=== PATIENT | male | born 1975 | race Caucasian/White ===

== ENCOUNTER 2025-01-26 17:34 | Inpatient (IN) | payer OTHER, SELFPAY ==
[2025-01-26] VITALS (7 sets, daily range): BP systolic 106–128; BP diastolic 75–94; PULSE 70–82; RESP 16–19; TEMP 36.6–37.4; O2SAT 97–100; BMI 29.7; BMI 27.2
--- NOTE | 2025-01-26 18:13 | EDS_ITS ---
HPI History of Present Illness Chief Complaint: Cellulitis Detail of Chief Complaint: Right index finger infection Informant: patient Narrative Narrative: Patient presents the emergency department with concern for infection in his right index finger. Patient states that he sustained a laceration 2 and half weeks ago to the tip of his right index finger on the lid of a grease gun. He did not think much of it. Yesterday he states that he was able to drain some purulent debris from the tip of the finger. Today started having increased redness to the finger and up the hand and up to the upper arm. He denies fevers chills or sweats. PFSH PFSH Allergy/AdvReac Type Severity Reaction Status Date / Time No Known Allergies Allergy Verified 01/26/25 17:36 Social History Smoking Status: Never smoker ROS ROS ED Review of Systems ROS Unobtainable: other Constitutional Constitutional ED: Reports lethargy; Denies chills, fever(s), sweats or weight loss Eyes Eyes: Denies blurry vision, change in vision or diplopia ENT ENT ED: Denies rhinorrhea or sore throat Cardiovascular Cardiovascular: Denies chest pain, orthopnea or racing heartbeat Respiratory/Chest Respiratory/Chest: Denies cough, dyspnea, dyspnea on exertion, orthopnea or sputum Gastrointestinal Gastrointestinal: Denies abdominal pain, diarrhea, nausea or vomiting Genitourinary Genitourinary ED: Denies dysuria, hematuria or urinary frequency Musculoskeletal Musculoskeletal: Denies arthralgias, back pain, myalgias or neck pain Integumentary Reports other Details: Cellulitis/infection right index finger ; Denies abscess, Abrasions or rash Neurologic Neurologic: Denies headache(s) or weakness Psychiatric Psychiatric: Denies anxiety, depression or suicidal thoughts Endocrine Endocrinology: Denies polydipsia, polyphagia or polyuria Hematologic/Lymphatic Hematologic/Lymphatic: Denies easy bleeding, easy bruising or lymphadenopathy Allergic/Immunologic Allergic/Immunologic ED: Denies mouth swelling, tongue swelling or urticaria EXAM Physical Exam Const Vital Signs: 01/26/25 17:36 01/26/25 17:41 01/26/25 18:40 Temperature 98.2 F 98.2 F 98 F Temperature Source Oral Oral Oral Pulse Rate 82 82 73 Respiratory Rate 18 18 19 H Blood Pressure 120/94 H 120/94 H 124/92 H Blood Pressure Mean 102 102 102 Pulse Ox 100 100 97 Oxygen Delivery Method Room Air Room Air Room Air 01/26/25 19:00 Temperature 98.2 F Temperature Source Oral Pulse Rate 70 Respiratory Rate 16 Blood Pressure 111/78 Blood Pressure Mean 89 Pulse Ox 97 Oxygen Delivery Method Room Air Positive well nourished and well developed General Appearance ED: well developed and NAD HEENT Reports TM's clear and moist mucous membranes normocephalic and atraumatic; Negative for trauma or tenderness Tympanic Membrane ED: Yes TM's clear Eyes PERRL and EOMs intact bilaterally General Eye ED: Negative for pale conjunctiva or scleral icterus Neck no lymphadenopathy, supple and no JVD General: Negative for tenderness Chest Wall inspection of chest normal and palpation of chest normal Chest: Negative for tenderness Resp normal respiratory effort and clear to auscultation bilaterally Effort and Inspection: Negative for respiratory distress or pain with movement Auscultation: Negative for rhonchi, wheezes or diminished lung sounds Cardio regular rate, regular rhythm, S1 normal heart sound, S2 normal heart sound and no murmurs Peripheral Pulses: pulses 2+ throughout GI normal to inspection, nondistended, normoactive bowel sounds, soft to palpation, non-tender, non-distended and no masses Back/Spine no CVA tenderness and no thoracic nor lumbar tenderness Extremity Extremity Narrative: Right hand-evaluation of the right index finger does reveal a small wound to the lateral aspect of the distal phalanx just proximal to the volar nail. No purulent drainage. He does have diffuse erythema over the dorsum of the finger with lymphangitic streaking to the posterior aspect of the hand and radiate up the forearm to the upper arm and armpit. General Extremety ED: Negative for edema General Extremity: Negative for edema Neuro oriented x3, CN's II-XII intact bilaterally, no sensory deficits noted and gait normal Sensorium / Orientation: awake, alert, oriented to person, oriented to place and oriented to time Motor Exam: strength 5/5 throughout and strength abnormal Psych mental status grossly normal Skin no rashes or lesions noted and no wounds MDM MDM MDM Narrative Medical decision making narrative: Patient with redness and swelling of his right index finger and hand with lymphangitic streaking to the armpit. Clinically looks well. IV line established. Patient was started on Ancef and Vanco. CBC with differential count 5.1 with hemoglobin 15.2 and platelet count of 214. Chemistries unremarkable. Lactate less than 1. Lab Data Attestation: I reviewed the patient's lab results. Labs: Laboratory Results - last 24 hr 01/26/25 18:27 WBC 5.1 RBC 5.09 Hgb 15.2 Hct 43.5 MCV 85.5 MCH 29.9 MCHC 34.9 RDW Std Deviation 39.5 RDW Coeff of Immanuel 12.7 Plt Count 214 MPV 9.1 Immature Gran % (Auto) 0.200 Neut % (Auto) 64.2 Lymph % (Auto) 20.5 [place] % (Auto) 13.5 H Eos % (Auto) 1.0 Baso % (Auto) 0.6 Absolute Neuts (auto) 3.3 Absolute Lymphs (auto) 1.05 Nucleated RBC % 0 Sodium 137 Potassium 4.1 Chloride 105 Carbon Dioxide 18.0 L Anion Gap 15 BUN 19 Creatinine 1.02 Estim Creat Clear Calc 94.81 Est GFR (MDRD) Non-Af 90 BUN/Creatinine Ratio 19.0 Glucose 93 Lactic Acid < 1.0 Calcium 8.9 Radiography Diagnostic Testing: Clinical Impression(s) from Imaging Studies Finger X-Ray 01/26/25 18:32 IMPRESSION: No periosteal reaction or osseous destructive change identified. A couple of soft tissue punctate densities near the skin surface at the lateral side of the 2nd metatarsal phalangeal joint on the AP and oblique views. Reading Location: [facility] Three-view x-rays of the right index finger obtained interpreted by myself as no evidence of fracture or dislocation or foreign body at the tip of the digit where the wound is. Radiology did note a couple soft tissue punctate density near the skin surface at the lateral side of the second metacarpal. I suspect these findings are old and not related to the current injury. Discharge Plan Triage Chief Complaint: Cellulitis ED Provider: Danna Nuno Dx/Rx/DC Orders Clinical Impression: Cellulitis of finger of right hand, Lymphangitis Primary Care Provider: Christopher Sweeney Referrals: Christopher Sweeney MD [Primary Care Provider] - Print Language: Kyrgyz Disposition Disposition: [facility]
[2025-01-26] MEDS: Vancomycin HCl 1,250 MG in 0.9% Normal Saline (250mL Bag) 250 ML 167 MG IV (18:31)
--- NOTE | 2025-01-26 18:32 | RAD_ITS ---
PROCEDURE: FINGER(S) MIN 2 VIEWS 01/26/2025 REASON FOR EXAM: INFECTION, RULE OUT FB TECHNIQUE: 3 view(s) of the right 2nd ray, index finger COMPARISON: None available FINDINGS: No fracture or dislocation. The joint spaces appear within limits. No periosteal reaction or osseous destructive change identified. A couple of punctate densities near the skin surface at the lateral side of the 2nd metatarsal phalangeal joint on the AP and oblique views. RAD/Finger(s) Min 2 Views IMPRESSION: No periosteal reaction or osseous destructive change identified. A couple of soft tissue punctate densities near the skin surface at the lateral side of the 2nd metatarsal phalangeal joint on the AP and oblique views. Reading Location: [id number]
[2025-01-26] MEDS: Cefazolin 3 GM in Syringe 1 EACH IV (18:37)
[2025-01-26 18:49] LABS: Absolute Lymphocyte Count 1.05 X10^3/uL (0.83-4.51); Absolute Neutrophil Count 3.3 X10^3/uL (2.0-7.7); Basophil# 0.03 X10^3/uL; Basophil% 0.6 % (0-1); Eosinophil# 0.05 X10^3/uL; Hematocrit 43.5 % (40-54); Hemoglobin 15.2 g/dL (13.0-16.5); Lymphocyte # 1.05 X10^3/ul (0.83-4.51); Lymphocyte % 20.5 % (19-41); Mean Corp Hgb Conc 34.9 g/dL (32-36); Mean Corpuscular Hgb 29.9 pg (27.0-32.0); Mean Corpuscular Volume 85.5 fL (80-94); Mean Platelet Vol. 9.1 fl (6.2-12.0); Monocyte# 0.69 X10^3/uL; Monocyte% 13.5 % (0-10); NRBC Flagged by Analyzer 0 % (0-5); Neutrophil # 3.29 X10^3/uL (2.7-7.7); Neutrophil % 64.2 % (47-70); Platelet Count 214 K/mm3 (150-450); RBC Distribution Width CV 12.7 % (11.6-14.6); RBC Distribution Width SD 39.5 fl (35.1-43.9); Red Blood Count 5.09 M/mm3 (4.6-6.2); White Blood Count 5.1 K/mm3 (4.4-11.0)
[2025-01-26 19:03] LABS: Anion Gap 15 (5-15); BUN 19 mg/dL (4-19); Calcium,Total 8.9 mg/dL (7.6-11.0); Chloride 105 mmol/L (98-108); Creatinine, Serum 1.02 mg/dL (0.70-1.20); EST Glomerular Filtration Rate 90 (>60); Estimated Creatinine Clearance 94.81 ml/min (50-250); Glucose 93 mg/dL (70-99); Potassium 4.1 mmol/L (3.3-5.1); Sodium Level 137 mmol/L (133-145)
[2025-01-26 19:04] LABS: Lactic Acid < 1.0 mmol/L (0.0-2.0)
--- NOTE | 2025-01-26 19:23 | PCM.HP.STD ---
[facility] - General General Date of Admission: 01/26/25 Date of Service: 01/26/25 Chief Complaint: Infected Finger. HPI Narrative ELLIE CH, is a 49 M with a past medical history of being overweight; with BMI of 29.7 this admission who presents to [facility] ER complaining of increasing redness and swelling of the dorsal aspect of his Right index finger. Mr. Ch reports his symptoms began approximately 2-1/2 weeks ago after he cut his finger on the lid of a grease gun with no immediate problems noted regarding infection. He then had a very stressful week after the untimely of his son with a large and patient having poor sleep and nutrition over the recent timeframe. Then yesterday he was able to drain some purulent material from the tip of the finger and today he noted lymphangitic streaking of his entire Right forearm so he decided to come in for further evaluation and treatment. He denies associated fever, chills, sweats, nausea, vomiting, diarrhea, constipation, abdominal pain, chest pain, shortness of breath, headache or pain with flexion and extension of the fingers of his Right hand. In the ER he had a x-rays that revealed no periosteal reaction or osseous destructive changes identified but with a couple of soft tissue punctate densities near the skin surface at the lateral side of the second metatarsal phalangeal joint on AP and oblique views and he was then diagnosed with Cellulitis of the Right index finger complicated by lymphangitic streaking up his entire Right arm to the axilla with patient empirically started on IV vancomycin and IV cefazolin. He was then admitted to the general medical floor for ongoing care for a stay that is expected to extend beyond 2 midnights. [facility] Home Medications ?Medication ?Instructions ?Recorded ?Last Taken ?Type mv-min-iron 18 mg-folic 240 mcg-K1 3 tab PO BID SUPPLEMENT 01/26/25 01/26/25 History 40 rdo-ocyizs-saeitm-herbs tablet ([employer]) Allergy/AdvReac Type Severity Reaction Status Date / Time No Known Allergies Allergy Verified 01/26/25 17:36 Social History Smoking Status: Never smoker ROS ROS Narrative Review of Systems: Constitutional: Patient denies fever or chills. Eyes: Patient denies change in vision or discharge from eyes. ENT: Patient denies runny nose, sore throat or ear pain. Resp: Patient denies shortness of breath or cough. CV: Patient denies chest pain, palpitations, heart racing or lower extremity edema. GI: Patient denies abdominal pain, nausea, vomiting, diarrhea or constipation. : Patient denies dysuria or hematuria. MSK: Patient denies arthralgias or myalgias. Skin: Patient admits to erythema and edema over the dorsal aspect of the right index finger extending into his hand with lymphangitic streaking up to the axilla as per HPI. Psych: Patient admits to sharply increased life stress after the recent of his son but he denies SI or HI. Neuro: Patient denies headache, paresthesias or focal neurologic deficits. Allergy: Patient denies lip swelling, tongue swelling or urticaria. Hematology: Patient denies easy bleeding or easy bruisability. Endocrinology: Patient denies polyuria, polydipsia, polyphagia or heat/cold intolerance. 14 point ROS otherwise negative save for positives noted above in HPI. Vital Signs Vital Signs Vital Signs: 01/26/25 17:36 01/26/25 17:41 01/26/25 18:40 Temperature 98.2 F 98.2 F 98 F Temperature Source Oral Oral Oral Pulse Rate 82 82 73 Respiratory Rate 18 18 19 H Blood Pressure 120/94 H 120/94 H 124/92 H Blood Pressure Mean 102 102 102 Pulse Ox 100 100 97 Oxygen Delivery Method Room Air Room Air Room Air 01/26/25 19:00 Temperature 98.2 F Temperature Source Oral Pulse Rate 70 Respiratory Rate 16 Blood Pressure 111/78 Blood Pressure Mean 89 Pulse Ox 97 Oxygen Delivery Method Room Air Weight Weight: 195 lb 8 oz Body Mass Index (BMI) 29.7 Physical Exam Const alert, oriented x3, no apparent distress, average body habitus and healthy appearing General Appearance: cooperative HEENT normocephalic, head/scalp atraumatic, hearing grossly normal bilaterally and moist oral mucous membranes Eyes PERRL and EOMs intact bilaterally Neck no lymphadenopathy and supple Resp normal respiratory effort, no retractions, no use of accessory muscles and clear to auscultation bilaterally Cardio regular rate and regular rhythm GI normal to inspection, nondistended, normoactive bowel sounds, soft to palpation, non-tender and non-distended Extremity Extremity Narrative: Cellulitis of Right index finger with Lymphangitic Streaking up the Right arm. Skin Skin Narrative: Cellulitis of Right index finger with Lymphangitic Streaking up the Right arm. Neuro oriented x3, CN's II-XII intact bilaterally, moves all extremities and no focal motor deficits Sensorium / Orientation: awake, alert, oriented to person, oriented to place and oriented to time Speech: speech normal Psych affect normal Results Medical Records Data Attestation: I reviewed the patient's medical records Lab / Micro Data Attestation: I reviewed the patient's lab results. 01/26/25 18:27 01/26/25 18:27 Labs: Laboratory Results - last 24 hr 01/26/25 18:27: WBC 5.1, RBC 5.09, Hgb 15.2, Hct 43.5, MCV 85.5, MCH 29.9, MCHC 34.9, RDW Std Deviation 39.5, RDW Coeff of Immanuel 12.7, Plt Count 214, MPV 9.1, Immature Gran % (Auto) 0.200, Neut % (Auto) 64.2, Lymph % (Auto) 20.5, [place] % (Auto) 13.5 H, Eos % (Auto) 1.0, Baso % (Auto) 0.6, Absolute Neuts (auto) 3.3, Absolute Lymphs (auto) 1.05, Nucleated RBC % 0, Sodium 137, Potassium 4.1, Chloride 105, Carbon Dioxide 18.0 L, Anion Gap 15, BUN 19, Creatinine 1.02, Estim Creat Clear Calc 94.81, Est GFR (MDRD) Non-Af 90, BUN/Creatinine Ratio 19.0, Glucose 93, Lactic Acid < 1.0, Calcium 8.9 Imaging Radiology Impression Finger X-Ray 01/26/25 18:32 IMPRESSION: No periosteal reaction or osseous destructive change identified. A couple of soft tissue punctate densities near the skin surface at the lateral side of the 2nd metatarsal phalangeal joint on the AP and oblique views. Reading Location: [facility] Assessment & Plan Assessment/Plan (1) Cellulitis of finger of right hand: (2) Lymphangitis: (3) Overweight (BMI 25.0-29.9): PLAN: Plan 1. Cellulitis of the Right Index Finger with Lymphangitic Streaking up Right Arm - Admit to general medical floor. Continue IV with IV vancomycin and IV cefazolin and then transition to PO. Give acetaminophen prn for [id number] (level 1-5/10) pain or fever. Give oxycodone prn for severe (level 6-10/10) pain. 2. Overweight; with BMI of 29.7 this admission - Weight loss will be recommended. Check TSH. 3. DVT prophylaxis - Lovenox 40 mg sq daily. Total time: Approximately (but not less than) 40 minutes. Charges/Coding Visit Charges Inpatient E&M: 23479 Init Hosp L1
--- NOTE | 2025-01-26 21:00 | CASEMGMT ---
Care Management Face to Face with patient for initial transition planning/care coordination assessment in the ED. This parts data writer introduced self and role at [facility]. Patient alert and oriented. Patient willing to participate in assessment and is able to answer all questions appropriately. Patient's , Alisa, bedside. Care providers, pharmacy, and demographics verified. Admitting Diagnosis: Cellulitis of finger of right hand, Lymphangitis Other diagnosis history: overweight, no other significant past medical history PCP: Christopher Sweeney Specialists: none Preferred Pharmacy: [facility] in [place] Insurance: [employer] Prescription Benefit: none Living Will/HPOA: none, but would at least like information. LNOK: , Alisa and 8 children Living Arrangements: lives with and 8 children in a 2 story home, but first floor living. Patient states there are 3 steps to enter from the front, but no steps to enter from the back. Independent at baseline with all ADLs/IADLs. Transportation: patient obtains driver trainer for medical appointments DME: none HHC: none SNF/Rehab: none Community Resources: none Patient goals: Patient wishes to discharge home, denies need for home health care at this time. Patient denies any further needs or concerns at this time. Disposition Plan: admission to acute; RN CM/SW to follow for discharge planning needs that may arise. Madelaine Sanches, TEXTILE KNITTER, COMMUNICATIONS MARKETING INTERN
[2025-01-26 21:28] LABS: Magnesium 2.3 mg/dL (1.5-2.2)
[2025-01-26] MEDS: 0.9% Normal Saline (1000mL) 1,000 ML 100 ML IV (21:56)
[2025-01-26] MEDS: Lactobacillis Acidophilus 1 CAP PO (21:57)
[2025-01-26] MEDS: Vancomycin IV 500 MG/100 ML BAG 100 MG IV (22:15)
--- NOTE | 2025-01-26 22:15 | PCM.RX.CS ---
Consult Antibiotic Management Pharmacy has been consulted to manage selected antibiotic: Vancomycin Type of Intervention Type of Consult: New start Suspected Infection Suspected Infection: Skin/Soft tissue Labs Labs: Sodium 137 mmol/L (133-145) 01/26/25 18:27 Potassium 4.1 mmol/L (3.3-5.1) 01/26/25 18:27 Chloride 105 mmol/L (98-108) 01/26/25 18:27 Carbon Dioxide 18.0 mmol/L (21.0-32.0) L 01/26/25 18:27 Anion Gap 15 (5-15) 01/26/25 18:27 BUN 19 mg/dL (4-19) 01/26/25 18:27 Creatinine 1.02 mg/dL (0.70-1.20) 01/26/25 18:27 Est GFR (MDRD) Non-Af 90 (>60) 01/26/25 18:27 BUN/Creatinine Ratio 19.0 RATIO (10-20) 01/26/25 18:27 Glucose 93 mg/dL (70-99) 01/26/25 18:27 Estimated Creatinine Clearance Estimated Creatinine Clearance: 94.81 Goal Trough Goal Trough: 15-20 mcg/mL Pharmacy Plan for Drug Dosing Pharmacy Plan for Drug Dosing: NEW START IV VANCOMYCIN Consulting Physician: Dr. Roach Indication: Cellulitis Goal Trough: 15-20 SrCr: 1.02 CrCl: 94.81 ml/min Comments: Given 1250mg x1 dose in ED, give 500mg x1 dose now to make initial dose 1750mg Vancomycin Dose: 1750mg Q12H to start @ 07:00 01/27/25 Pending Level: Vancomycin trough @ 06:30 01/28/25 Pharmacy Service will continue to monitor and adjust dosing as required. Follow-Up Labs Follow-Up Labs: Trough: Vancomycin (01/28/25 @ 06:30)
[2025-01-27 02:38] VITALS: BP 116/85; PULSE 65; RESP 16; TEMP 36.6; O2SAT 98
[2025-01-27] MEDS: Cefazolin 2 GM in Syringe 10 ML IV ×2 (02:42→10:28)
[2025-01-27] MEDS: 0.9% Saline Lock 10 ML Syringe IV ×2 (02:42→10:28)
[2025-01-27] MEDS: Vancomycin HCl 1,750 MG in 0.9% Normal Saline (500mL Bag) 500 ML 250 MG IV (07:02)
--- NOTE | 2025-01-27 07:15 | PCM.PN.HOSP ---
Reason for Visit Reason for Visit: Diagnoses Overweight (01/26/25) Lymphangitis (01/26/25) Cellulitis of right finger (01/26/25) Subjective Subjective Redness much improved. Objective Data Objective Data Vital Signs: Vital Signs Temp Pulse Resp BP Pulse Ox O2 Del Method 36.6 C 65 16 116/85 H 98 Room Air 01/27/25 02:38 01/27/25 02:38 01/27/25 02:38 01/27/25 02:38 01/27/25 02:38 01/27/25 02:38 Oxygen Delivery Method Room Air Weight: 81.193 kg Body Mass Index (BMI) 27.2 Intake & Output: Intake and Output for Last 24 Hours 01/25/25 01/26/25 01/27/25 23:59 23:59 23:59 Intake Total 605 / 605 Balance 605 / 605 Lab / Micro Data 01/27/25 06:25 01/27/25 06:25 Labs: Laboratory Results - last 24 hr 01/26/25 18:27: WBC 5.1, RBC 5.09, Hgb 15.2, Hct 43.5, MCV 85.5, MCH 29.9, MCHC 34.9, RDW Std Deviation 39.5, RDW Coeff of Immanuel 12.7, Plt Count 214, MPV 9.1, Immature Gran % (Auto) 0.200, Neut % (Auto) 64.2, Lymph % (Auto) 20.5, [place] % (Auto) 13.5 H, Eos % (Auto) 1.0, Baso % (Auto) 0.6, Absolute Neuts (auto) 3.3, Absolute Lymphs (auto) 1.05, Nucleated RBC % 0, Sodium 137, Potassium 4.1, Chloride 105, Carbon Dioxide 18.0 L, Anion Gap 15, BUN 19, Creatinine 1.02, Estim Creat Clear Calc 94.81, Est GFR (MDRD) Non-Af 90, BUN/Creatinine Ratio 19.0, Glucose 93, Lactic Acid < 1.0, Calcium 8.9, Magnesium 2.3 H Radiography Diagnostic Testing: Radiology Impression Finger X-Ray 01/26/25 18:32 IMPRESSION: No periosteal reaction or osseous destructive change identified. A couple of soft tissue punctate densities near the skin surface at the lateral side of the 2nd metatarsal phalangeal joint on the AP and oblique views. Reading Location: [facility] Physical Exam Const alert and no apparent distress HEENT head/scalp atraumatic and moist oral mucous membranes Extremity Extremity Narrative: Erythema of the dorsum of the right index finger with lymphangitis extending proximally up the arm. No induration nor fluctuance. Assessment & Plan Assessment/Plan (1) Cellulitis of finger of right hand: PLAN: Index finger Xray negative. on IV Vanc and cefazolin. Discharged with cephalexin and doxycycline. Advised to keep the extremity elevated when at rest.
[2025-01-27 07:17] LABS: Absolute Lymphocyte Count 1.44 X10^3/uL (0.83-4.51); Absolute Neutrophil Count 2.3 X10^3/uL (2.0-7.7); Basophil# 0.03 X10^3/uL; Basophil% 0.6 % (0-1); Eosinophil# 0.07 X10^3/uL; Eosinophils% 1.5 % (0-5); Hemoglobin 14.2 g/dL (13.0-16.5); Lymphocyte # 1.44 X10^3/ul (0.83-4.51); Lymphocyte % 30.6 % (19-41); Mean Corp Hgb Conc 34.6 g/dL (32-36); Mean Corpuscular Hgb 29.8 pg (27.0-32.0); Mean Platelet Vol. 9.2 fl (6.2-12.0); Monocyte# 0.87 X10^3/uL; Monocyte% 18.5 % (0-10); NRBC Flagged by Analyzer 0 % (0-5); Neutrophil # 2.29 X10^3/uL (2.7-7.7); Neutrophil % 48.6 % (47-70); Platelet Count 202 K/mm3 (150-450); RBC Distribution Width CV 12.6 % (11.6-14.6); RBC Distribution Width SD 39.6 fl (35.1-43.9); Red Blood Count 4.77 M/mm3 (4.6-6.2); White Blood Count 4.7 K/mm3 (4.4-11.0)
[2025-01-27 07:58] VITALS: BP 124/92; PULSE 66; RESP 20; TEMP 36.4; O2SAT 98
[2025-01-27 08:21] LABS: ALB/GLOB Ratio 1.2 RATIO (0.9-2.4); AST(SGOT) 21 U/L (<=37); Alanine Aminotransfer ALT/SGPT 15 U/L (<=46); Albumin, Serum 3.7 g/dL (3.5-5.0); Alkaline Phosphatase 72 U/L (40-129); Anion Gap 12 (5-15); BUN 20 mg/dL (4-19); BUN/Creat Ratio 19.8 RATIO (10-20); Calcium,Total 8.6 mg/dL (7.6-11.0); Carbon Dioxide 20.1 mmol/L (21.0-32.0); Chloride 107 mmol/L (98-108); Creatinine, Serum 0.98 mg/dL (0.70-1.20); EST Glomerular Filtration Rate 94 (>60); Estimated Creatinine Clearance 88.21 ml/min (50-250); Globulin 3.1 g/dL (2.2-4.2); Glucose 93 mg/dL (70-99); Phosphorus 3.4 mg/dL (2.7-4.5); Protein, Total 6.8 g/dL (5.9-8.4); Sodium Level 139 mmol/L (133-145); Total Bilirubin 0.91 mg/dL (0.00-1.30)
--- NOTE | 2025-01-27 09:13 | DS.PCM_ITS ---
Providers Date of Admission: 01/26/25 Primary Care Physician: Dr. Christopher Sweeney MD Reason For Visit: CELLULITIS OF THE LEFT INDEX FINGER WITH Diagnosis Discharge Diagnosis (1) Cellulitis of finger of right hand: Status: Acute Code(s): L03.011 - Cellulitis of right finger Plan: Index finger Xray negative. on IV Vanc and cefazolin. Discharged with cephalexin and doxycycline. Advised to keep the extremity elevated when at rest. Medications at Discharge Home Medications mv-min-iron 18 mg-folic 240 mcg-K1 40 jsl-gqubax-vnramu-herbs tablet (Alive Daily Energy) 3 tab PO BID SUPPLEMENT 01/26/25 cephalexin 500 mg capsule 500 mg PO Q8H #21 caps 01/27/25 doxycycline monohydrate 100 mg tablet 100 mg PO BID #14 tabs 01/27/25 Hospital Course Operations None Procedures None Summary of Care Provided Hospital Course: Patient presents with cellulitis of his right index finger with lymphangitis. No obvious cuts or lesions. Hand x-ray was unremarkable. Exam is consistent with a superficial cellulitis with lymphangitis. Patient endorses that his redness is improved and he has full range of motion of his right index finger. No concern for septic arthritis nor osteomyelitis at this time. Patient to be discharged with cephalexin and doxycycline. Patient advised to keep his right upper extremity elevated when at rest. Patient improved much faster than initially anticipated on admission. Weight / BMI Weight Weight: 81.193 kg Body Mass Index (BMI) 27.2 ABG / Lab / Microbiology Data 01/27/25 06:25 01/27/25 06:25 Laboratory: Laboratory Results - last 24 hr 01/26/25 18:27: WBC 5.1, RBC 5.09, Hgb 15.2, Hct 43.5, MCV 85.5, MCH 29.9, MCHC 34.9, RDW Std Deviation 39.5, RDW Coeff of Immanuel 12.7, Plt Count 214, MPV 9.1, Immature Gran % (Auto) 0.200, Neut % (Auto) 64.2, Lymph % (Auto) 20.5, Alexander % (Auto) 13.5 H, Eos % (Auto) 1.0, Baso % (Auto) 0.6, Absolute Neuts (auto) 3.3, Absolute Lymphs (auto) 1.05, Nucleated RBC % 0, Sodium 137, Potassium 4.1, Chloride 105, Carbon Dioxide 18.0 L, Anion Gap 15, BUN 19, Creatinine 1.02, Estim Creat Clear Calc 94.81, Est GFR (MDRD) Non-Af 90, BUN/Creatinine Ratio 19.0, Glucose 93, Lactic Acid < 1.0, Calcium 8.9, Magnesium 2.3 H 01/27/25 06:25: WBC 4.7, RBC 4.77, Hgb 14.2, Hct 41.0, MCV 86.0, MCH 29.8, MCHC 34.6, RDW Std Deviation 39.6, RDW Coeff of Immanuel 12.6, Plt Count 202, MPV 9.2, Immature Gran % (Auto) 0.200, Neut % (Auto) 48.6, Lymph % (Auto) 30.6, Alexander % (Auto) 18.5 H, Eos % (Auto) 1.5, Baso % (Auto) 0.6, Absolute Neuts (auto) 2.3, Absolute Lymphs (auto) 1.44, Nucleated RBC % 0, Sodium 139, Potassium 4.0, Chloride 107, Carbon Dioxide 20.1 L, Anion Gap 12, BUN 20 H, Creatinine 0.98, Estim Creat Clear Calc 88.21, Est GFR (MDRD) Non-Af 94, BUN/Creatinine Ratio 19.8, Glucose 93, Calcium 8.6, Phosphorus 3.4, Total Bilirubin 0.91, AST 21, ALT 15, Alkaline Phosphatase 72, Total Protein 6.8, Albumin 3.7, Globulin 3.1, Albumin/Globulin Ratio 1.2, TSH 1.780 Radiography Diagnostic Testing: Radiology Impression Finger X-Ray 01/26/25 18:32 IMPRESSION: No periosteal reaction or osseous destructive change identified. A couple of soft tissue punctate densities near the skin surface at the lateral side of the 2nd metatarsal phalangeal joint on the AP and oblique views. Reading Location: [id number] D/C Instructions Discharge Diet: No restrictions DC O2, CPAP, BIPAP Needs Home O2 Discharge instructions: No Meaningful Use Info Meaningful Use Meaningful Use Diagnoses (Choose all that apply): None applicable Ischemic Stroke Statin Dosing Therapy Reference: STATIN DOSE THERAPY REFERENCE: * Patients > 75 years receive moderate or high dose statin therapy. * Patients 75 years or YOUNGER should receive HIGH intensity statin dose unless contraindicated. You will be required to document reason for non-treatment if statin daily dose does not meet guidelines. HIGH DOSE STATIN THERAPY DAILY Atorvastatin > than or = to 40 mg Rosuvastatin > than or = to 20 mg Amlodipine + Atorvastatin > than or = to 2.5/40 mg Ezetimibe + Simvastatin 10/80 mg Simvastatin 80mg Discharge Plan Admission Admit Date/Time: 01/26/25 20:32 Primary Reason for Your Visit: Right index finger cellulitis Attending Provider: Darrel Buchanan Primary Care Provider: Christopher Sweeney Consulting Providers: Justyn Roach Instructions Additional Instructions / Restrictions: Keep your right hand elevated when you are at rest. Notify your physician or return to the emergency room if the redness starts to start to get worse or if increased swelling in your hand. Discharge Orders/Prescriptions Prescriptions: New cephalexin 500 mg capsule 500 mg PO Q8H Qty: 21 0RF doxycycline monohydrate 100 mg tablet 100 mg PO BID Qty: 14 0RF Continued Alive Daily Energy 18 mg iron- 240 mcg-40 mcg tablet 3 tab PO BID Referrals / Follow Up: Christopher Sweeney MD [Primary Care Provider] - Within 2 Weeks Disposition Disposition (needs filled in before D/C Order can be placed): Home, Self Care Charges/Coding Visit Charges Inpatient E&M: 28248 Disch Hosp
[2025-01-27] MEDS: Enoxaparin 40 MG/0.4 ML Syringe SC (10:14)
[2025-01-27] MEDS: Lactobacillis Acidophilus 1 CAP PO (10:14)
[2025-01-27 10:24] VITALS: PULSE 70
[2025-01-27 12:36] VITALS: BP 107/67; PULSE 73; RESP 18; TEMP 36.8; O2SAT 98
== END 2025-01-27 13:10 | disposition home or self-care (01) | DRG 603 ==
LOC: ED 19:31 → MS3 20:39
PROVIDERS: Admitting Provider Internal Medicine; Emergency Provider Emergency Medicine; PCP Family Medicine
DX: L03.011 Cellulitis of right finger (principal); L03.111 Cellulitis of right axilla; E66.3 Overweight; S61.210A Laceration without foreign body of right index finger without damage to nail, initial encounter; Z68.29 Body mass index [BMI] 29.0-29.9, adult; W26.8XXA Contact with other sharp object(s), not elsewhere classified, initial encounter
CPT/HCPCS: 36415; 73140; 80048; 80053; 83605; 83735; 84100; 84443; 85025; 99285; A4216